=== PATIENT | female | born 1995 | race Caucasian/White ===

== ENCOUNTER 2017-04-21 20:08 | Emergency (ER) | payer BC ==
[~2017-04-21] VITALS: Ht 149.9 cm; Wt 47.7 kg
[~2017-04-21 20:08] MED LIST: MOTRIN800 MG PO; ZOFRAN ODT4 MG PO
[2017-04-21 20:27] LABS: HEMATOCRIT 41.1 % (36.0-46.0); MCH 30.7 PG (29.0-34.0); MCHC 34.1 G/DL (30.0-36.0); MCV 90.1 FL (83-99); PLATELET COUNT 306 K/uL (156-360); RBC DIS.WIDTH-CV 12.2 % (11.8-14.6); RBC DIS.WIDTH-SD 40.1 % (39-53); RED BLOOD COUNT 4.56 M/uL (3.80-5.20); WHITE BLOOD COUNT 11.1 K/uL (4.1-10.2)
[2017-04-21 20:38] LABS: ALBUMIN 4.3 g/dL (3.2-4.8); CHLORIDE 105 mEq/L (99-109); POTASSIUM 4.6 mEq/L (3.7-5.4); SODIUM 138 mEq/L (136-147)
[2017-04-21 20:41] LABS: GLUCOSE 95 mg/dL (70-99)
[2017-04-21 20:42] LABS: TOTAL BILIRUBIN 0.5 mg/dL (0.0-1.0)
[2017-04-21 20:44] LABS: ALKALINE PHOSPHATASE 41 IU/L (3-129); CREATININE 0.7 mg/dL (0.6-1.3); GFR ESTIMATE (CALCULATED) > 59 mL/min/
[2017-04-21 20:45] LABS: UREA NITROGEN (BUN) 8 mg/dL (9-23)
[2017-04-21 20:46] LABS: AST (GOT) 14 IU/L (2-34)
[2017-04-21 20:47] LABS: ALT (GPT) 9 IU/L (3-49)
[2017-04-21 20:55] LABS: QUANTITATIVE HCG < 4.0 MIU/ML
[2017-04-21 23:15] LABS: APPEARANCE CLOUDY ((CLEAR)); BILIRUBIN NEGATIVE; BLOOD SMALL; COLOR YELLOW ((YELLOW)); GLUCOSE (STRIP) NEGATIVE; KETONES NEGATIVE; LEUKOCYTES TRACE; NITRITE NEGATIVE; PROTEIN (STRIP) NEGATIVE; SPECIFIC GRAVITY 1.019 (1.000-1.030); UROBILINOGEN 0.2 MG/DL (0.2-1.0)
[2017-04-21 23:19] LABS: BACTERIA 1+ /HPF; EPITHELIAL CELLS 2+ /HPF; HYALINE CASTS 0-5 /LPF; MUCUS 2+ /LPF; RED BLOOD CELLS 0-5 /HPF (0-5); UCUL ADDED? NO; WHITE BLOOD CELLS 0-5 /HPF (0-5)
[2017-04-22] MEDS ORDERED: MOTRIN800 MG PO (01:53)
[2017-04-22 02:13] VITALS: BP 116/59
== END 2017-04-22 02:13 | disposition home or self-care (01) ==
LOC: EME 20:08
DX: N83.201 Unspecified ovarian cyst, right side (principal); F17.200 Nicotine dependence, unspecified, uncomplicated
CPT/HCPCS: 76856; 80053; 81003; 84702; 85027; 99281; 99284

== ENCOUNTER 2017-10-30 10:08 | Emergency (ER) | payer BC ==
[~2017-10-30] VITALS: Ht 149.9 cm; Wt 47.4 kg
[2017-10-30 10:50] LABS: HEMATOCRIT 40.3 % (36.0-46.0); HEMOGLOBIN 13.8 G/DL (11.9-15.5); MCH 30.9 PG (29.0-34.0); MCHC 34.2 G/DL (30.0-36.0); MCV 90.2 FL (83-99); PLATELET COUNT 288 K/uL (156-360); RBC DIS.WIDTH-CV 12.2 % (11.8-14.6); RBC DIS.WIDTH-SD 39.9 % (39-53); RED BLOOD COUNT 4.47 M/uL (3.80-5.20); WHITE BLOOD COUNT 7.3 K/uL (4.1-10.2)
[2017-10-30 11:01] LABS: CHLORIDE 105 mEq/L (99-109)
[2017-10-30 11:02] LABS: SODIUM 140 mEq/L (136-147)
[2017-10-30 11:03] LABS: GLUCOSE 97 mg/dL (70-99)
[2017-10-30 11:07] LABS: CREATININE 0.9 mg/dL (0.6-1.3); GFR ESTIMATE (CALCULATED) > 59 mL/min/
[2017-10-30 11:08] LABS: UREA NITROGEN (BUN) 10 mg/dL (9-23)
[2017-10-30 11:34] LABS: QUANTITATIVE HCG < 4.0 MIU/ML
[2017-10-30 12:02] LABS: APPEARANCE HAZY ((CLEAR)); BILIRUBIN SMALL; BLOOD MODERATE; COLOR YELLOW ((YELLOW)); GLUCOSE (STRIP) NEGATIVE; KETONES NEGATIVE; LEUKOCYTES NEGATIVE; NITRITE NEGATIVE; PROTEIN (STRIP) 30; UROBILINOGEN 0.2 MG/DL (0.2-1.0)
[2017-10-30 12:08] LABS: AMORPHOUS URATES CRYSTALS 1+; BACTERIA NONE SEEN /HPF; EPITHELIAL CELLS 1+ /HPF; HYALINE CASTS RARE /LPF; MUCUS 1+ /LPF; RED BLOOD CELLS 0-5 /HPF (0-5); UCUL ADDED? NO; WHITE BLOOD CELLS 0-5 /HPF (0-5)
[2017-10-30] MEDS ORDERED: ZOFRAN4 MG PO (13:49)
[2017-10-30] MEDS ORDERED: MOTRIN600 MG PO (13:49)
[2017-10-30] MEDS ORDERED: PERCOCET 5/31 TABLET PO (13:49)
[2017-10-30 14:03] VITALS: BP 119/77
== END 2017-10-30 14:05 | disposition home or self-care (01) ==
LOC: EME 10:08
DX: N20.0 Calculus of kidney (principal); Z87.442 Personal history of urinary calculi; F17.200 Nicotine dependence, unspecified, uncomplicated; Z87.42 Personal history of other diseases of the female genital tract
CPT/HCPCS: 74018; 76770; 80048; 81003; 84702; 85027; 99281; 99284; J1885; J3010